=== PATIENT | female | born 1965 | race Caucasian/White ===

== ENCOUNTER 2021-02-15 10:52 | Emergency (ER) | payer SELFPAY ==
[2021-02-15 11:47] LABS: HEMOGLOBIN 13.7 gm/dl (12.3-15.3); RED BLOOD COUNT 4.16 M/UL (4.00-5.10); WHITE BLOOD COUNT 7.8 K/UL (4.5-11.0)
[2021-02-15 12:25] LABS: BUN/CREATININE RATIO 10 (0-10)
[2021-02-15] MEDS ORDERED: PROVENTIL HFA6.7 GM INH (17:02)
[2021-02-15] MEDS ORDERED: MEDROL DOSEPAK 24 MG PO (17:02)
== END 2021-02-15 18:05 | disposition home or self-care (01) ==
LOC: ER1 10:52
PROVIDERS: Physician Assistant Medical
DX: R06.02 Shortness of breath (principal); J02.9 Acute pharyngitis, unspecified; J45.909 Unspecified asthma, uncomplicated; Z20.822 Contact with and (suspected) exposure to COVID-19
CPT/HCPCS: 71045; 80053; 82550; 82553; 83874; 84484; 85025; 85379; 87081; 87880; 93005; 94640; 94664; 96374; 99285; J2930; Q9967; U0002